=== PATIENT | female | born 1935 | race Caucasian/White ===

== ENCOUNTER 2023-01-01 13:47 | Emergency (ER) | payer OTHER, SELFPAY ==
[2023-01-01] VITALS (13 sets, daily range): BP systolic 92–126; BP diastolic 51–76; PULSE 79–107; RESP 16–35; TEMP 35.3–36.4; O2SAT 94–98; BMI 18.9
--- NOTE | ~2023-01-01 | XR_ITS ---
XR abdomen/kub 1V DATE: 01/01/2023 14:37 INDICATION: Constipation TECHNIQUE: 2 AP views COMPARISON: None FINDINGS: There is a very prominent amount of fecal material and gas in the colon, consistent with cl inical presentation of constipation. No apparent bowel obstruction. No thumbprinting. No pneumatosis or intraperitoneal free air is detected. No visceromegaly is detected. There is diffuse osteopenia. There is degenerative change of the thoracic and lumbar spine and hips, especially right hip. IMPRESSION: Prominent amount of fecal material and gas in the colon, consistent with clinical present ation of constipation. No apparent bowel obstruction or free air Reviewed, dictated and finalized at [facility]. Reviewed, dictated and finalized at location [facility]. IMPRESSION: Prominent amount of fecal material and gas in the colon, consistent with clinical presentation of constipation. No apparent bowel obstruction or f ree air
[2023-01-01 14:23] LABS: Hematocrit 40.5 % (37.0-47.0); Hemoglobin 12.7 g/dL (12.0-15.0); Mean Corpuscular HGB Conc 31.4 g/dl (32-36); Mean Corpuscular Hemoglobin 27.2 pg (26-34); Mean Corpuscular Volume 86.7 fl (80-100); Mean Platelet Volume 8.9 fl (7.4-10.4); Platelet Count Result 602 k/mm3 (150-375); Red Blood Count 4.67 M/mm3 (4.2-5.4); Red Cell Distribution Width 14.4 % (11.5-14.5); White Blood Count 26.7 K/mm3 (4.5-10.0)
[2023-01-01 14:33] LABS: Alanine Aminotransferase 15 U/L (6-35); Albumin Level 4.1 g/dL (3.5-5.1); Alkaline Phosphatase 110 U/L (38-126); Anion Gap 12 mmol/L (8-16); Aspartate Amino Transferase 28 U/L (14-36); Bilirubin,Total 0.9 mg/dL (0.2-1.3); Blood Urea Nitrogen 16 mg/dL (7-17); Carbon Dioxide 22 mmol/L (22-30); Chloride 98 mmol/L (98-107); Estimated CRCL calculation 43 ml/min; Estimated Glomerular Filt Rate > 60; Glucose 168 mg/dL (65-110); Lipase 149 U/L (23-300); Potassium 4.4 mmol/L (3.4-5.0); Sodium 132 mmol/L (137-145)
--- NOTE | 2023-01-01 14:37 | ED.NAVMDI ---
HPI - Nausea/Vomiting/Diarrhea General Chief complaint: Nausea/Vomiting/Diarrhea Stated complaint: n/v - constipated Time Seen by Provider: 01/01/23 14:19 History of Present Illness HPI Narrative: Pt is on hospice due to metastatic lung cancer and is on fentanyl patch. Pt is constipated per daughter and vomited several times today. Pt has complaints of back pain but no abdominal pain. Related Data Allergies Allergy/AdvReac Type Severity Reaction Status Date / Time No Known Allergies Allergy Unverified 12/15/18 15:55 Review of Systems Review of Systems: All systems reviewed & are unremarkable except as noted in HPI and below PMFSH Family History Family History (Updated 02/16/16 @ 14:44 by DOCTOR UNKNOWN) Father Family history unknown Mother Family history unknown Social History Social History Smoking status: Never smoker Alcohol intake: never Exam Const: General: no acute distress Nutritional Appearance: thin Limitations: no limitations HENMT: Head: normal to inspection Eyes: Conjunctivae: conjunctivae normal Pupils: Equal, round and reactive pupils present Neck: Neck: normal visual inspection Resp: Effort & Inspection: normal respiratory effort Auscultation: clear to auscultation bilaterally Cardio: Rate: regular rate Rhythm: regular rhythm GI: Inspection: distended GI Palp: No Tenderness to palpation present (GI) Auscultation: Hypoactive bowel sounds present Skin: General skin exam: normal color Rashes: no rashes Neuro: General: patient oriented x3, moves all extremities and no focal motor deficits Cranial nerves: Yes Nystagmus not present Speech: normal speech Extrem: General: normal to inspection Psych: Mental Status: mental status grossly normal Affect: normal affect Attitude: cooperative Course Vital Signs Vital signs: Vital Signs Temperature 97.6 F 01/01/23 13:52 Pulse Rate 85 01/01/23 13:52 Respiratory Rate 20 01/01/23 13:52 Blood Pressure 106/60 01/01/23 13:52 Pulse Oximetry 94 01/01/23 13:52 Oxygen Delivery Room Air 01/01/23 13:52 Temperature 97.3 F L 01/01/23 18:17 Pulse Rate 97 01/01/23 18:17 Respiratory Rate 16 01/01/23 18:17 Blood Pressure 126/76 01/01/23 18:17 Pulse Oximetry 96 01/01/23 18:17 Oxygen Delivery Room Air 01/01/23 13:52 MDM - Nausea/Vomiting/Diarrhea MDM Narrative Medical decision making narrative: pt quite constipated on kub discussed with dr wilson and he is ok admitting under hospice, will need hospice nurse to evaluate and then admit. Lab Data 01/01/23 14:17 01/01/23 14:17 Labs: Lab Results 01/01/23 Range/Units 14:17 WBC 26.7 H (4.5-10.0) K/mm3 RBC 4.67 (4.2-5.4) M/mm3 Hgb 12.7 (12.0-15.0) g/dL Hct 40.5 (37.0-47.0) % MCV 86.7 (80-100) fl MCH 27.2 (26-34) pg MCHC 31.4 L (32-36) g/dl RDW 14.4 (11.5-14.5) % Plt Count 602 H (150-375) k/mm3 MPV 8.9 (7.4-10.4) fl Immature Gran % (Auto) Not Reportable Neut % (Auto) Not Reportable Lymph % (Auto) Not Reportable Ogle % (Auto) Not Reportable Eos % (Auto) Not Reportable Baso % (Auto) Not Reportable Lymph # (Auto) Not Reportable Ogle # (Auto) Not Reportable Eos # (Auto) Not Reportable Baso # (Auto) Not Reportable Abs Immat Gran (auto) Not Reportable Absolute Neuts (auto) Not Reportable Absolute Nucleated RBC Not Reportable Total Counted 100 Neutrophils % (Manual) 79 H (46-73) % Band Neutrophils % 5 (0-6) % Lymphocytes % (Manual) 10.0 L (18-44) % Monocytes % (Manual) 5 (3-9) % Basophils % (Manual) 1 (0-1) % Nucleated RBC % Not Reportable Abs Neuts (Manual) 22.42 H (1.7-7.2) K/mm3 Abs Lymphs (Manual) 2.67 (1.1-4.5) K/mm3 Abs Monocytes (Manual) 1.33 H (0.1-0.90) K/mm3 Abs Basophils (Manual) 0.26 H (0.0-0.1) K/mm3 Nucleated RBCs 2 % Platelet Estimate Increased (Adequate) Hypochromasia 1+ (NORMAL
[2023-01-01 14:43] LABS: Band Neutrophils Percent 5 % (0-6); Basophils Absolute Manual 0.26 K/mm3 (0.0-0.1); Basophils Percent Manual 1 % (0-1); Lymphocytes Absolute Manual 2.67 K/mm3 (1.1-4.5); Monocytes Absolute Manual 1.33 K/mm3 (0.1-0.90); Monocytes Percent Manual 5 % (3-9); Neutrophils Absolute Manual 22.42 K/mm3 (1.7-7.2); Neutrophils Percent Manual 79 % (46-73); Nucleated Red Blood Cells 2 %; Total Cells Counted 100
[2023-01-01 14:44] LABS: Hypochromasia 1+ (NORMAL); Platelet Estimate Increased (Adequate); Schistocytes None Seen (NORMAL)
[2023-01-01] MEDS: ONDANSETRON INJ 4 MG/2 ML VIAL IV PUSH (15:00)
[2023-01-01] MEDS: METHYLNALTREXONE 12 MG/0.6 ML VIAL SUB-Q (17:15)
[2023-01-01] MEDS: LATANOPROST 0.005% OP SOLN 2.5 ML BTL 1 DROP EACH EYE (23:00)
[2023-01-01] MEDS: HYDROcodone/acetaminophen (*CRX) 10-325 MG TABLET 1 TAB PO (23:01)
[2023-01-01] MEDS: polyethylene glycoL 3350 17 GM POWD.PACK PO (23:01)
[2023-01-01] MEDS: BISACODYL 5 MG TABLET EC PO (23:01)
[2023-01-01] MEDS: BISACODYL 10 MG SUPPOSITORY RECTAL (23:02)
--- NOTE | 2023-01-01 23:24 | ADMGEN ---
This patient, Soraya Hampton, was admitted to 3 Med Surg Room 318-01 at 1910. Patient/family oriented to hospital policies and general routines including ID bracelet, bed and alarms, visiting hours, pain management, procedures, bathroom and other care routines, personal items, smoking policy, room service/diet, and visiting hours. Information on how to activate the Rapid Response Team has been discussed. Patient/Family are encouraged to report perceived risks to care and to ask questions if they do not understand what they are told or what they should do.
--- NOTE | 2023-01-02 11:02 | PM.IMHP ---
H&P: HPI History of Present Illness Date/Time: 01/02/23 11:02 Chief Complaint: NO BM FOR SEVERAL DAYS Narrative: 87 y/o f on hospice for lung cancer presents with abdominal distension and no bm for several days. Review of Systems Review of Systems: prior to interview ROS unobtainable: Yes other [facility] Family History Family History (Updated 02/16/16 @ 14:44 by DOCTOR UNKNOWN) Father Family history unknown Mother Family history unknown Social History Social History Smoking status: Never smoker Alcohol intake: never Substance use: never Spiritual care concerns: No Meds Home Medications and Allergies Allergies Allergy/AdvReac Type Severity Reaction Status Date / Time No Known Allergies Allergy Unverified 12/15/18 15:55 Vital Signs Vital Signs - 24 hr 01/01/23 13:52 01/01/23 15:15 01/01/23 15:30 Temperature 97.6 F Pulse Rate 85 79 79 Respiratory Rate 20 26 H 24 H Blood Pressure 106/60 107/57 L 107/57 L Pulse Oximetry 94 98 Oxygen Delivery Room Air 01/01/23 15:31 01/01/23 15:45 01/01/23 16:00 Temperature 97.6 F Pulse Rate 84 81 85 Respiratory Rate 28 H 31 H 33 H Blood Pressure 104/51 L 96/59 L Pulse Oximetry Oxygen Delivery 01/01/23 18:17 01/01/23 16:15 01/01/23 16:30 Temperature 97.3 F L Pulse Rate 97 84 90 Respiratory Rate 16 34 H 29 H Blood Pressure 126/76 112/63 103/56 L Pulse Oximetry 96 Oxygen Delivery 01/01/23 16:45 01/01/23 17:00 01/01/23 17:15 Temperature Pulse Rate 91 90 93 Respiratory Rate 29 H 35 H 32 H Blood Pressure 108/60 110/61 121/72 Pulse Oximetry Oxygen Delivery 01/01/23 22:00 Temperature 95.5 F L Pulse Rate 107 H Respiratory Rate 18 Blood Pressure 92/64 L Pulse Oximetry 95 Oxygen Delivery Exam Narrative: prior to exam H&P: Results Labs Labs: Short CBC 01/01/23 Range/Units 14:17 WBC 26.7 H (4.5-10.0) K/mm3 Hgb 12.7 (12.0-15.0) g/dL Hct 40.5 (37.0-47.0) % Plt Count 602 H (150-375) k/mm3 BMP 01/01/23 14:17 Sodium 132 L Potassium 4.4 Chloride 98 Carbon Dioxide 22 BUN 16 Creatinine 0.60 L Glucose 168 H Calcium 10.0 Liver Function 01/01/23 Range/Units 14:17 Total Bilirubin 0.9 (0.2-1.3) mg/dL AST 28 (14-36) U/L ALT 15 (6-35) U/L Alkaline Phosphatase 110 (38-126) U/L Albumin 4.1 (3.5-5.1) g/dL Assessment and Plan Assessment and plan (1) Palliative care encounter: Code(s): Z51.5 - Encounter for palliative care Status: Acute Assessment and Plan: Meets inpatient hospice criteria due to uncontrolled obstipation NOT responsive to intensification of home regimen Methylnaltrexone IM x1, Miralax q 2 hours, Senna and Dulcolax BID Continue home analgesics, minus fentanyl patch, with prn IV morphine for breakthrough pain (2) Constipation: Code(s): K59.00 - Constipation, unspecified Status: Acute (3) Lung cancer: Code(s): C34.90 - Malignant neoplasm of unspecified part of unspecified bronchus or lung Status: Acute
--- NOTE | 2023-01-02 11:03 | PM.DDS ---
Discharge Summary Date and Time Date of : 01/02/23 Time of : 00:36 Provider Pronounced By: Jacqueline Schaeffer RN/Claudia Godinez RN Probable Cause of Probable Cause of : METASTATIC LUNG CANCER Summary Hospital Course: Admitted due to obstipation. Bowel regimen initiated. Patient was comfortable and suddenly and peacefully during the night following admission. Additional Data Confirmation of as documented by pronouncing clinician: Pupillary Reflex, Palpable Pulses, Response to Stimuli, Heart Tones and Breath Sounds Name of Provider Notified: Maxine Time Provider Notified: 00:36 [place] [employer]ipper Notified: Yes Date [facility] Notified of : 01/02/23 Time [facility] Notified of : 00:43
== END 2023-01-01 18:01 | disposition hospice, inpatient (51) ==
LOC: ANHED 17:45 → ANH3MEDSUR 19:34
PROVIDERS: Emergency Medicine; Emergency Provider Emergency Medicine; PCP Internal Medicine
DX: K59.00 Constipation, unspecified (principal); C34.90 Malignant neoplasm of unspecified part of unspecified bronchus or lung; C79.9 Secondary malignant neoplasm of unspecified site
CPT/HCPCS: 36415; 74018; 80053; 83690; 85025; 96372; 96374; 99285; A9270; J2212; J2405

== ENCOUNTER 2023-01-01 18:02 | HOS | payer OTHER, SELFPAY ==
--- NOTE | 2023-01-02 11:03 | DS_ITS ---
This report was moved to the correct visit on 01/04/2023. Original report was signed by Alfonso Goodman MD on 01/02/231812. Discharge Summary Date and Time Date of : 01/02/23 Time of : 00:36 Provider Pronounced By: Jacqueline Schaeffer RN/Claudia Godinez RN Probable Cause of Probable Cause of : METASTATIC LUNG CANCER Summary Hospital Course: Admitted due to obstipation. Bowel regimen initiated. Patient was comfortable and suddenly and peacefully during the night following admission. Additional Data Confirmation of as documented by pronouncing clinician: Pupillary Reflex, Palpable Pulses, Response to Stimuli, Heart Tones and Breath Sounds Name of Provider Notified: Maxine Time Provider Notified: 00:36 [place] [place] [employer] Supervisor Notified: Yes Date [facility] Notified of : 01/02/23 Time [facility] Notified of : 00:43 This report may have been done utilizing a voice recognition system. Attempts have been made to correct errors. However, there may be uncorrected grammatical, spelling, and recognition errors present. Report Initialized date/time: Alfonso Goodman MD 01/02/23 / 1102 Electronically signed by: Alfonso Goodman MD 01/02/231812 [facility]
--- NOTE | 2023-01-02 11:03 | HP_ITS ---
This report was moved to the correct visit on 01/04/2023. Original report was signed by Alfonso Goodman MD on 01/02/23 642. H&P: HPI History of Present Illness Date/Time: 01/02/23 11:02 Chief Complaint: NO BM FOR SEVERAL DAYS Narrative: 87 y/o f on hospice for lung cancer presents with abdominal distension and no bm for several days. Review of Systems Review of Systems: prior to interview ROS unobtainable: Yes other [facility] Family History Family History (Updated 02/16/16 @ 14:44 by DOCTOR UNKNOWN) Father Family history unknown Mother Family history unknown Social History Social History Smoking status: Never smoker Alcohol intake: never Substance use: never Spiritual care concerns: No Meds Home Medications and Allergies Allergies Allergy/AdvReac Type Severity Reaction Status Date / Time No Known Allergies Allergy Unverified 12/15/18 15:55 Vital Signs Vital Signs - 24 hr 01/01/23 13:52 01/01/23 15:15 01/01/23 15:30 Temperature 97.6 F Pulse Rate 85 79 79 Respiratory Rate 20 26 H 24 H Blood Pressure 106/60 107/57 L 107/57 L Pulse Oximetry 94 98 Oxygen Delivery Room Air 01/01/23 15:31 01/01/23 15:45 01/01/23 16:00 Temperature 97.6 F Pulse Rate 84 81 85 Respiratory Rate 28 H 31 H 33 H Blood Pressure 104/51 L 96/59 L Pulse Oximetry Oxygen Delivery 01/01/23 18:17 01/01/23 16:15 01/01/23 16:30 Temperature 97.3 F L Pulse Rate 97 84 90 Respiratory Rate 16 34 H 29 H Blood Pressure 126/76 112/63 103/56 L Pulse Oximetry 96 Oxygen Delivery 01/01/23 16:45 01/01/23 17:00 01/01/23 17:15 Temperature Pulse Rate 91 90 93 Respiratory Rate 29 H 35 H 32 H Blood Pressure 108/60 110/61 121/72 Pulse Oximetry Oxygen Delivery 01/01/23 22:00 Temperature 95.5 F L Pulse Rate 107 H Respiratory Rate 18 Blood Pressure 92/64 L Pulse Oximetry 95 Oxygen Delivery Exam Narrative: prior to exam H&P: Results Labs Labs: Short CBC 01/01/23 Range/Units 14:17 WBC 26.7 H (4.5-10.0) K/mm3 Hgb 12.7 (12.0-15.0) g/dL Hct 40.5 (37.0-47.0) % Plt Count 602 H (150-375) k/mm3 BMP 01/01/23 14:17 Sodium 132 L Potassium 4.4 Chloride 98 Carbon Dioxide 22 BUN 16 Creatinine 0.60 L Glucose 168 H Calcium 10.0 Liver Function 01/01/23 Range/Units 14:17 Total Bilirubin 0.9 (0.2-1.3) mg/dL AST 28 (14-36) U/L ALT 15 (6-35) U/L Alkaline Phosphatase 110 (38-126) U/L Albumin 4.1 (3.5-5.1) g/dL Assessment and Plan Assessment and plan (1) Palliative care encounter: Code(s): Z51.5 - Encounter for palliative care Status: Acute Assessment and Plan: * Meets inpatient hospice criteria due to uncontrolled obstipation NOT responsive to intensification of home regimen * Methylnaltrexone IM x1, Miralax q 2 hours, Senna and Dulcolax BID * Continue home analgesics, minus fentanyl patch, with prn IV morphine for breakthrough pain
== END 2023-01-02 00:35 | disposition expired | DRG 951 ==
LOC: ANH3MEDSUR 01-03 15:57
PROVIDERS: Admitting Provider Internal Medicine; PCP Internal Medicine; Visit Provider Internal Medicine
DX: Z51.5 Encounter for palliative care (principal); C34.00 Malignant neoplasm of unspecified main bronchus; C79.9 Secondary malignant neoplasm of unspecified site; K59.00 Constipation, unspecified
CPT/HCPCS: A9270